=== PATIENT | male | born 1985 | race African-American/Black ===

== ENCOUNTER 2018-09-03 05:38 | Inpatient (IN) | payer MEDICAID ==
[~2018-09-03] VITALS: Ht 182.9 cm; Wt 88.2 kg
[~2018-09-03 05:38] MED LIST: IBUPROFEN800 MG ORAL; NKM
[2018-09-03] MEDS ORDERED: Morphine Sulfate 4mg/ml Inj (IV USE ONLY) IVP ONE (06:00)
--- NOTE | 2018-09-03 06:04 | Emergency Room Report ---
History of Present Illness General Chief Complaint: Vomiting Source: Patient Present Illness HPI This is a 33-year-old male with no past medical history. He presents with chief complaint of abdominal cramps and vomiting. I had seen this patient few hours ago. He came in for the same complaint and labs showed renal insufficiency. CT scan unremarkable. Patient was discharged home. He try to drink water at home and had the same problem. Never had this problem before. This has been ongoing for last 3-4 days. No fever chills but no nausea no vomiting. Pain is sharp and crampy. 8 out of 10. Allergies: Coded Allergies: No Known Allergies (Unverified , 03/06/16) Patient History Past Medical History: see triage record, old chart reviewed Past Surgical History: none Pertinent Family History: none Social History: Denies: smoking Immunizations: other Reviewed Nursing Documentation: PMH: Agreed; PSxH: Agreed Nursing Documentation-PMH Past Medical History: No Stated History Review of Systems Eye: Denies: eye pain, blurred vision ENT: Denies: ear pain, nose congestion, throat swelling Respiratory: Denies: cough, shortness of breath Cardiovascular: Denies: chest pain, palpitations Gastrointestinal: Reports: abdominal pain, nausea, vomiting Musculoskeletal: Denies: back pain, joint pain Skin: Denies: rash Neurological: Denies: headache, numbness Endocrine: Denies: increased thirst, increased urine Hematologic/Lymphatic: Denies: easy bruising All Other Systems: negative except mentioned in HPI Physical Exam Vital Signs Date Time Temp Pulse Resp B/P (MAP) Pulse Ox O2 Delivery O2 Flow Rate FiO2 09/03/18 05:46 97.5 81 16 95 Room Air vitals unremarkable Sp02 EP Interpretation: reviewed, normal General Appearance: well appearing, no apparent distress, alert Head: normocephalic, atraumatic Eyes: bilateral eye PERRL, bilateral eye EOMI ENT: hearing grossly normal, normal pharynx Neck: full range of motion, supple, no meningismus Respiratory: chest non-tender, lungs clear, normal breath sounds Cardiovascular #1: regular rate, rhythm, no murmur Gastrointestinal: non tender, no mass, no organomegaly, no bruit, non-distended , abnormal bowel sounds Musculoskeletal: back normal, gait/station normal, normal range of motion Psychiatric: mood/affect normal Skin: warm/dry Medical Decision Making Diagnostic Impression: Primary Impression: Intractable vomiting Qualified Codes: R11.2 - Nausea with vomiting, unspecified Additional Impressions: JONAS (acute kidney injury) Dehydration ER Course Pt with n/v. Has dehydration. no e/o acute abd or obstruction. bc he cant tolerate PO, will admit. I discussed case with Dr. Kapadia who will admit. Last Vital Signs Date Time Temp Pulse Resp B/P (MAP) Pulse Ox O2 Delivery O2 Flow Rate FiO2 09/03/18 05:46 97.5 81 16 95 Room Air Status: improved Disposition: ADMITTED INPATIENT Condition: Serious Referrals: NOT CHOSEN IPA/,REFERRING (PCP) Solitario Briceno MD September 03, 2018 06:04
[2018-09-03 06:17] VITALS: BP 136/90
--- NOTE | 2018-09-03 06:20 | NUR ---
ER Nurse Note: Pt came from home c/o abdominal cramps and vomiting since 08/31. Pt stated initally the emesis was green and yellow but now it is clear. Pt was in the ER for same reason. Pt a&ox4, VSS, no signs of distress. Pt stated 7/10 sharp pain/cramping. All meds given per ERMD orders. Awaiting urine. All safety measures met; will continue to montior.
--- NOTE | 2018-09-03 07:15 | NUR ---
ED Nurse Note: Pt unable to provide urine specimen at this time.
--- NOTE | 2018-09-03 07:30 | NUR ---
ED Nurse Note: [facility] CALLED FOR PT TRANSFER. REPORT GIVEN TO OSCAR SPAIN. RN READY TO ACCEPT PT. PT TAKEN UP TO [facility] VIA GURNEY WITH ALL BELONGINGS ACCOMPANIED BY EMT. VSS.
--- NOTE | 2018-09-03 07:40 | NUR ---
ED Nurse Note: Urine sent.
[2018-09-03 07:50] LABS: APPEARANCE,URINE SLIGHTLY CLOUDY; BILIRUBIN, URINE NEGATIVE (NEGATIVE); COLOR,URINE YELLOW; GLUCOSE, URINE (UA) NEGATIVE (NEGATIVE); KETONES,URINE NEGATIVE (NEGATIVE); LEUKOCYTE ESTERASE ,URINE NEGATIVE (NEGATIVE); NITRITE,URINE NEGATIVE (NEGATIVE); PH,URINE 5 (4.5-8.0); PROTEIN,URINE 2+ (NEGATIVE); UROBILINOGEN,URINE NORMAL MG/DL (0.0-1.0)
[2018-09-03 08:00] VITALS: BP 146/92
[2018-09-03] MEDS: D5NS 1,000 ML IV SCH ×2 (09:14→20:16)
[2018-09-03 09:35] LABS: BASOPHILS % (AUTO) 1.3 % (0.0-2.0); EOSINOPHILS % (AUTO) 0.2 % (0.0-3.0); HEMOGLOBIN 17.8 G/DL (14.2-18.0); LYMPHOCYTES % (AUTO) 14.1 % (20.0-45.0); MEAN CORPUSCULAR VOLUME 90 FL (80-99); MONOCYTES % (AUTO) 12.2 % (1.0-10.0); NEUTROPHILS % (AUTO) 72.2 % (45.0-75.0); PLATELET COUNT 349 K/UL (150-450); RED BLOOD COUNT 5.69 M/UL (4.70-6.10); RED CELL DISTRIBUTION WIDTH 11.5 % (11.6-14.8); WHITE BLOOD COUNT 14.8 K/UL (4.8-10.8)
[2018-09-03 09:40] LABS: ANION GAP 11 mmol/L (5-15); BLOOD UREA NITROGEN 45 mg/dL (7-18); CALCIUM 10.1 MG/DL (8.5-10.1); CARBON DIOXIDE 30 MMOL/L (21-32); CHLORIDE 94 MMOL/L (98-107); SODIUM 135 MMOL/L (136-145)
[2018-09-03] MEDS ORDERED: Enoxaparin 40mg Inj SUBQ SCH (10:00)
[2018-09-03] MEDS: Enoxaparin 40mg Inj SUBQ SCH (10:00)
[2018-09-03] MEDS ORDERED: cefTRIAXone 1 GM in D5W 55 ML IVPB SCH (11:00)
[2018-09-03 12:00] VITALS: BP 129/99
--- NOTE | 2018-09-03 13:08 | NUR ---
CASE MANAGEMENT:REVIEW 33 YR OLD MALE PRESENTED TO ER CC: SEVERE ABDOMINAL PAIN, CRAMPING AND VOMITING SI: INTRACTABLE VOMITING 97.5 86 16 136/90 95% ON RA WBC+14.8 BUN+45 CR+2.0 IS: 1L NS BOLUS IV ZOFRAN IV MORPHINE : TO MED/SURG 3 EAST INTERQUAL CRITERIA MET
[2018-09-03 15:45] VITALS: BP 137/84
--- NOTE | 2018-09-03 16:45 | History and Physical Report ---
DATE OF ADMISSION: 09/03/2018 REASON FOR ADMISSION: 1. Acute kidney injury. 2. Nausea, vomiting. 3. Dehydration. HISTORY OF PRESENT ILLNESS: The patient is a 33-year-old gentleman who presented to the emergency room complaining of abdominal cramps, nausea, and vomiting. The patient stated that over the last three to four days, he has not been able to eat or drink anything and has had nausea, vomiting. The patient had presented to the emergency room, previously had been discharged and return for further evaluation and care, did noted to be positive for opioids and marijuana. His creatinine had been elevated at 2.9, improved to 2.5. The patient was admitted for further evaluation and care of nausea, vomiting, and dehydration. ALLERGIES: No known drug allergies. PAST MEDICAL HISTORY: Knee pain. PAST SURGICAL HISTORY: None. FAMILY HISTORY: None. SOCIAL HISTORY: Positive for marijuana. REVIEW OF SYSTEMS: NEUROLOGIC: The patient denies headache, change in vision, syncope, presyncopal episodes. CARDIOVASCULAR: No current chest pain, palpitations, or angina. PULMONARY: No difficulty breathing, productive cough, sputum. GASTROINTESTINAL/GENITOURINARY: The patient is complaining of nausea and vomiting. No diarrhea. ENDOCRINOLOGY: No night sweats, fevers, or chills. PHYSICAL EXAMINATION: VITAL SIGNS: Blood pressure 129/84, respiratory rate 18, pulse 82, temperature 98.0, 98% oxygen saturation on room air. GENERAL: The patient is awake, alert, not in distress. HEENT: Extraocular muscles intact. No lymphadenopathy noted. Oropharyngeal mucosa is clear and dry. CARDIOVASCULAR: S1 and S2. No rubs or gallops. PULMONARY: Clear to auscultation bilaterally. No rales, rhonchi or wheezes. ABDOMEN: Nontender. EXTREMITIES: No edema noted. LABORATORY DATA: None currently available. ASSESSMENT AND PLAN: 1. Acute kidney injury, most likely secondary to severe intravascular volume depletion from nausea, vomiting over the last four to five days. IV fluids have been initiated. 2. Nausea and vomiting. The patient is positive for opioids and marijuana. At this time, Gastroenterology has been consulted for further evaluation and management. IV fluids and Zofran have been initiated. The patient may have a urinary tract infection. 3. UTI. Start Rocephin. 4. Severe volume depletion. We will continue IV fluids. CT abdomen and pelvis has been done, no abnormal pathology noted. Ori Pimentel MD DR: AMBER JOB#: [id number] CC:
--- NOTE | 2018-09-03 19:00 | NUR ---
NURSE NOTES: NO PAIN.NO VOMITING. CONDITION STABLE.
--- NOTE | 2018-09-03 19:21 | NUR ---
HAND-OFF: Report given to Jazlyn PASTRANA RN.
--- NOTE | 2018-09-03 19:22 | NUR ---
NURSE NOTES: Report taken from OSCAR Llanos. Patient is awake and seated at edge of bed, family at bedside. A&Ox4. No signs of distress on room air. IV c/d/i and patent, running D5NS at 100 mls/hr. Patient is having no complaints of pain, nausea or vomiting at the current time. stated tolerating diet well. Bed in lowest position, call light within reach.
[2018-09-03 20:00] VITALS: BP 142/96
[2018-09-04 04:00] VITALS: BP 131/91
[2018-09-04] MEDS: D5NS 1,000 ML IV SCH (05:14)
--- NOTE | 2018-09-04 07:20 | NUR ---
HAND-OFF: Report given to OSCAR Llanos. Patient is in bed, VS stable..
[2018-09-04 07:28] LABS: BASOPHILS % (AUTO) 1.6 % (0.0-2.0); EOSINOPHILS % (AUTO) 1.9 % (0.0-3.0); HEMATOCRIT 46.1 % (42.0-52.0); HEMOGLOBIN 15.9 G/DL (14.2-18.0); LYMPHOCYTES % (AUTO) 20.4 % (20.0-45.0); MEAN CORPUSCULAR VOLUME 90 FL (80-99); MONOCYTES % (AUTO) 14.4 % (1.0-10.0); NEUTROPHILS % (AUTO) 61.7 % (45.0-75.0); PLATELET COUNT 319 K/UL (150-450); RED BLOOD COUNT 5.11 M/UL (4.70-6.10); RED CELL DISTRIBUTION WIDTH 11.2 % (11.6-14.8); WHITE BLOOD COUNT 10.6 K/UL (4.8-10.8)
--- NOTE | 2018-09-04 07:34 | NUR ---
NURSE NOTES: AWAKE/ALERT. PAIN SCALE 9/10. IN NO APPARENT DISTRESS. Addendum: 09/04/18 at 0736 by JUDIT EDWARDS RN AWAKE /ALERT. NO PAIN. NON/V. IN NO DISTRESS.
[2018-09-04 07:52] LABS: ANION GAP 9 mmol/L (5-15); BLOOD UREA NITROGEN 24 mg/dL (7-18); CALCIUM 8.9 MG/DL (8.5-10.1); CARBON DIOXIDE 29 MMOL/L (21-32); CHLORIDE 99 MMOL/L (98-107); CREATININE 1.2 MG/DL (0.55-1.30); POTASSIUM 3.4 MMOL/L (3.5-5.1); SODIUM 137 MMOL/L (136-145)
[2018-09-04 08:00] VITALS: BP 118/72
[2018-09-04] MEDS: Enoxaparin 40mg Inj SUBQ SCH (08:59)
--- NOTE | 2018-09-04 09:11 | Nephrology Progress Note ---
Assessment/Plan Assessment/Plan: 1. JONAS- severe intravascular volume depletion from nausea, vomiting - Cr down to 1.2 with IVFs - stable, continue IVFs 2. Nausea and vomiting. The patient is positive for opioids and marijuana. - difficulty swallowing - per GI 3. UTI. Rocephin. 4. Severe volume depletion. Continue IVFs Subjective Date patient seen: September 04, 2018 Time patient seen: 09:09 ROS Limited/Unobtainable: No Gastrointestinal/Abdominal: Reports: difficulty swallowing, nausea Allergies: Coded Allergies: No Known Allergies (Unverified , 03/06/16) Subjective Patient c/o difficulty swallowing Objective Last 24 Hour Vital Signs Date Time Temp Pulse Resp B/P (MAP) Pulse Ox O2 Delivery O2 Flow Rate FiO2 09/04/18 08:10 Room Air 09/04/18 04:00 98.5 68 18 131/91 (104) 99 09/03/18 21:00 Room Air 09/03/18 20:00 98.7 71 20 142/96 (111) 99 09/03/18 15:45 98.1 64 18 137/84 (101) 100 09/03/18 12:00 98.1 86 20 129/99 (109) 95 Intake and Output 09/03/18 09/04/18 18:59 06:59 Intake Total 2145 ml 100 ml Balance 2145 ml 100 ml Intake Oral 340 ml IV Total 1805 ml 100 ml # Voids 3 Laboratory Tests 09/03/18 09:15: White Blood Count 14.8H, Red Blood Count 5.69, Hemoglobin 17.8, Hematocrit 51.0 , Mean Corpuscular Volume 90, Mean Corpuscular Hemoglobin 31.3H, Mean Corpuscular Hemoglobin Concent 35.0, Red Cell Distribution Width 11.5L, Platelet Count 349, Mean Platelet Volume 8.6, Neutrophils (%) (Auto) 72.2, Lymphocytes (%) (Auto) 14.1L, Monocytes (%) (Auto) 12.2H, Eosinophils (%) (Auto ) 0.2, Basophils (%) (Auto) 1.3, Sodium Level 135L, Potassium Level 4.0, Chloride Level 94L, Carbon Dioxide Level 30, Anion Gap 11, Blood Urea Nitrogen 45H, Creatinine 2.0H, Estimat Glomerular Filtration Rate 46.3, Glucose Level 111H, Calcium Level 10.1 09/04/18 06:18: White Blood Count 10.6, Red Blood Count 5.11, Hemoglobin 15.9, Hematocrit 46.1, Mean Corpuscular Volume 90, Mean Corpuscular Hemoglobin 31.1H, Mean Corpuscular Hemoglobin Concent 34.5, Red Cell Distribution Width 11.2L, Platelet Count 319, Mean Platelet Volume 8.6, Neutrophils (%) (Auto) 61.7, Lymphocytes (%) (Auto) 20.4, Monocytes (%) (Auto) 14.4H, Eosinophils (%) (Auto) 1.9, Basophils (%) ( Auto) 1.6, Sodium Level 137, Potassium Level 3.4L, Chloride Level 99, Carbon Dioxide Level 29, Anion Gap 9, Blood Urea Nitrogen 24H, Creatinine 1.2, Estimat Glomerular Filtration Rate > 60, Glucose Level 108H, Calcium Level 8.9 Height (Feet): 6 Weight (Pounds): 194 General Appearance: no apparent distress, alert EENT: normal ENT inspection Neck: normal alignment, supple Cardiovascular: normal rate, regular rhythm Respiratory/Chest: lungs clear, normal breath sounds Abdomen: non tender, soft Edema: no edema noted Arm (L), no edema noted Arm (R), no edema noted Leg (L), no edema noted Leg (R), no edema noted Pedal (L), no edema noted Pedal (R), no edema noted Generalized Ori Pimentel MD September 04, 2018 09:11
--- NOTE | 2018-09-04 10:42 | Discharge Instructions ---
Discharge Instructions Discharge Instructions Services at Discharge: day care Resume Normal Activity?: Yes Follow Up Orders Follow Up with PCP 1 week For Congestive Heart Failure Reminder Report to your physician any weight gain of 5 pounds or more in one week. Ori Pimentel MD September 04, 2018 10:42
--- NOTE | 2018-09-04 11:00 | NUR ---
NURSE NOTES: discharged home accpd by in stable condition. dc instructions given.
--- NOTE | 2018-09-04 21:44 | General Progress Note ---
Assessment/Plan Assessment/Plan: Assessment - Resolved N/V - Azotemia Recommendations - push po - d/c planning Subjective Allergies: Coded Allergies: No Known Allergies (Unverified , 03/06/16) Subjective Feels better no N/V tolerating po Objective Last 24 Hour Vital Signs Date Time Temp Pulse Resp B/P (MAP) Pulse Ox O2 Delivery O2 Flow Rate FiO2 09/04/18 08:10 Room Air 09/04/18 08:00 99.3 53 18 118/72 (87) 100 09/04/18 04:00 98.5 68 18 131/91 (104) 99 Intake and Output 09/03/18 09/04/18 19:00 07:00 Intake Total 2245 ml 100 ml Balance 2245 ml 100 ml Intake Oral 340 ml IV Total 1905 ml 100 ml # Voids 3 Laboratory Tests 09/04/18 06:18: White Blood Count 10.6, Red Blood Count 5.11, Hemoglobin 15.9, Hematocrit 46.1, Mean Corpuscular Volume 90, Mean Corpuscular Hemoglobin 31.1H, Mean Corpuscular Hemoglobin Concent 34.5, Red Cell Distribution Width 11.2L, Platelet Count 319, Mean Platelet Volume 8.6, Neutrophils (%) (Auto) 61.7, Lymphocytes (%) (Auto) 20.4, Monocytes (%) (Auto) 14.4H, Eosinophils (%) (Auto) 1.9, Basophils (%) ( Auto) 1.6, Sodium Level 137, Potassium Level 3.4L, Chloride Level 99, Carbon Dioxide Level 29, Anion Gap 9, Blood Urea Nitrogen 24H, Creatinine 1.2, Estimat Glomerular Filtration Rate > 60, Glucose Level 108H, Calcium Level 8.9 Height (Feet): 6 Weight (Pounds): 194 Objective WDWN NCAT supple CTA RRR abd soft ND no edema Loren Jc MD September 04, 2018 21:44
--- NOTE | 2018-09-05 00:45 | Consultation ---
DATE OF CONSULTATION: 09/03/2018 NOTE: POOR AUDIO GASTROENTEROLOGY CONSULTATION CONSULTING PHYSICIAN: Loren Jc M.D. CHIEF COMPLAINT: "I was asked to see this patient by Dr. Ori Pimentel for evaluation of nausea and vomiting." HISTORY OF PRESENT ILLNESS: The patient is a 33-year-old, gentleman, who came to the emergency room with four days history of abdominal cramps and vomiting. The patient states that this has started after he and his family had . He states that actually his xdbwpa-ka-aib also became ill, but swelling of the face. The patient himself, however, started having nausea and vomiting multiple times a day. He came to emergency room on and his creatinine is elevated to 2.9, which subsequently improved to 2.5. He then subsequently returned and was admitted to the hospital. The patient denies any diarrhea. Today on my evaluation, the patient actually feels much better. He states that his vomiting has completely resolved and he has no abdominal pain. He states positive for marijuana. He states that he has been taking marijuana twice daily for the past many years, since he is in his 20s. previous history of nausea and vomiting. PAST MEDICAL HISTORY: Otherwise negative. FAMILY HISTORY: Negative for disorders. SOCIAL HISTORY: The patient is . He has children. He does use marijuana twice daily but he denies any drug use. MEDICATIONS: None. REVIEW OF SYSTEMS: Negative. PHYSICAL EXAMINATION: GENERAL: A well-developed, well-nourished man, seen in his room. HEENT: Normocephalic and atraumatic. Sclerae anicteric. Oropharynx clear. NECK: Supple. CHEST: Clear to auscultation. CARDIOVASCULAR: regular rate. ABDOMEN: Soft with good bowel sounds. There is no organomegaly or tenderness. No masses. EXTREMITIES: Revealed no edema. NEUROLOGIC: Grossly nonfocal. LABORATORY DATA: Noted. ASSESSMENT: This patient presents with acute disorder consistent with predominantly nausea and vomiting where he had a significant degree of azotemia and acute renal failure, which is being addressed separately. The differential diagnosis mostly includes a viral gastroenteritis, which resolved spontaneously. The patient however has more azotemia that be attributable to this simple process. In addition, he has a significant degree of leukocytosis. We will therefore check his stool although this is the first time. The patient's vomiting is therefore not a typical diagnosis at this time. RECOMMENDATIONS: 1. Continue IV hydration. 2. Follow laboratory parameters. 3. Check stool for cultures including Salmonella and treatment of food exposure. 4. Advance diet as tolerated. Thank you for asking me to participate in care of this patient. Loren Jc M.D. DR: KEILY JOB#: [id number] CC:
--- NOTE | 2018-09-05 09:20 | Discharge Summary ---
Discharge Summary Discharge Summary _ DATE OF ADMISSION: 09/03/2018 DATE OF DISCHARGE: 09/04/2018 DISCHARGED BY: Dr. Ori Pimentel CONSULTANTS: Dr. Loren Jc BRIEF HOSPITAL COURSE: Patient is a 33-year-old gentleman, who presented to the emergency room complaining of abdominal cramps, nausea, and vomiting. The patient stated over the past 3 to 4 days, he was not able to eat or drink anything and had nausea and vomiting. The patient had presented to the emergency room the day prior, where he was noted to be positive for opioids and marijuana. CT scan was unremarkable. He was discharged but came back to ED for further evaluation and care. Creatinine was elevated at 2.9. The patient was admitted for further evaluation and care of nausea, vomiting and dehydration. Patient was admitted to medical floor. He was started on clear liquid diet. Patient had acute kidney injury, most likely secondary to severe intravascular volume depletion from nausea, and vomiting. He was given IV hydration. Urinalysis showed 2+ protein, 4+ blood, negative nitrite, negative leukocyte esterase, 15-20 RBC, 0-2 WBC with hyaline and granular casts. He was started empirically on Rocephin. GI was consulted. He was given symptomatic treatment. Diet was advanced. Vomiting completely resolved. Patient stated he had been taking marijuana twice daily for many years. Creatinine eventually normalized. He was tolerating p.o. well. Patient was discharged home. FINAL DIAGNOSES: Acute kidney injury Nausea and vomiting UTI Severe volume depletion DISPOSITION: Patient was discharged home. DISCHARGE MEDICATIONS: Refer to Discharge Medication List. DISCHARGE INSTRUCTIONS: Follow-up in a week. I have been assigned to complete a discharge summary on this account, I was not involved with the patient's management. Cynthia Billy NP September 05, 2018 09:20
== END 2018-09-04 11:30 | disposition home or self-care (01) | DRG 469 ==
LOC: EMR 05:55 → 3E 06:14 → EDBEDREQ 06:28
DX: N17.9 Acute kidney failure, unspecified (principal); E86.0 Dehydration; N39.0 Urinary tract infection, site not specified; R11.2 Nausea with vomiting, unspecified
CPT/HCPCS: 36415; 80048; 80307; 81003; 85025; 87045; 96361; 96374; 96375; 99285; J2405; J8499

== ENCOUNTER 2019-09-13 23:37 | Inpatient (IN) | payer SELFPAY ==
[~2019-09-13] VITALS: Ht 182.9 cm; Wt 90.7 kg
--- NOTE | 2019-09-13 23:48 | NUR ---
ED Nurse Note: pt presents to ED c/o N/V since this AM, pt has not been able to keep fluids or medications down. pt reports that when he vomits, it causes his abd to spasm and 10/10 pain. the px is mostly in the upper abd, pt denies fever, chills or diarrhea at this time. pt is diaphoretic and actively vomiting up on exam.
[2019-09-13 23:50] VITALS: BP 159/86
[2019-09-14] MEDS ORDERED: Dicyclomine HCl 10mg/5ml oral soln ORAL ONE
[2019-09-14] MEDS ORDERED: Lidocaine 2% Visc 15ml soln ORAL ONE
[2019-09-14] MEDS ORDERED: Mylanta II UD 30ml ORAL ONE
[2019-09-14] MEDS ORDERED: Morphine Sulfate 4mg/ml Inj (IV USE ONLY) IVP ONE
--- NOTE | 2019-09-14 00:27 | Emergency Room Report ---
History of Present Illness General Chief Complaint: Nausea Source: Patient Present Illness HPI 34-year-old male presents ED for evaluation of nausea and vomiting. Started this morning after eating breakfast. Multiple episodes of vomiting. Feels dehydrated. Cramping pain. 8 out of 10, nonradiating. Has been here previously for similar presentation. States that he smokes marijuana but has cut back. Denies any alcohol use or other drug use. Denies fevers or chills. Denies diarrhea. No other aggravating relieving factors. Denies any other associated symptoms Allergies: Coded Allergies: No Known Allergies (Unverified , 03/06/16) COVID-19 Screening Contact w/high risk pt: No Recent Travel to affected area: No Experienced COVID-19 symptoms?: No COVID-19 Testing performed DEVELOPMENT MANAGER: No Patient History Past Medical History: none Past Surgical History: none Pertinent Family History: none Social History: Denies: smoking, alcohol use, drug use Immunizations: UTD Reviewed Nursing Documentation: PMH: Agreed; PSxH: Agreed Nursing Documentation-PMH Hx Cardiac Problems: No Hx Cancer: No Hx Gastrointestinal Problems: No Hx Neurological Problems: No Review of Systems All Other Systems: negative except mentioned in HPI Physical Exam Vital Signs Date Time Temp Pulse Resp B/P (MAP) Pulse Ox O2 Delivery O2 Flow Rate FiO2 09/13/19 23:41 98.2 98 16 159/86 (110) 96 Sp02 EP Interpretation: reviewed, normal General Appearance: no apparent distress, alert, GCS 15, non-toxic Head: normocephalic, atraumatic Eyes: bilateral eye normal inspection, bilateral eye PERRL ENT: hearing grossly normal, normal pharynx, no angioedema, normal voice Neck: full range of motion, supple/symm/no masses Respiratory: chest non-tender, lungs clear, normal breath sounds, speaking full sentences Cardiovascular #1: regular rate, rhythm, no edema Cardiovascular #2: 2+ carotid (R), 2+ carotid (L), 2+ radial (R), 2+ radial (L) , 2+ dorsalis pedis (R), 2+ dorsalis pedis (L) Gastrointestinal: normal bowel sounds, non tender, soft, non-distended, no guarding, no rebound Rectal: deferred Genitourinary: normal inspection, no CVA tenderness Musculoskeletal: back normal, normal range of motion, gait/station normal, non- tender Neurologic: alert, motor strength/tone normal, oriented x3, sensory intact, responsive, speech normal Psychiatric: judgement/insight normal, memory normal, mood/affect normal, no suicidal/homicidal ideation Reflexes: 3+ bicep (R), 3+ bicep (L), 3+ tricep (R), 3+ tricep (L), 3+ knee (R) , 3+ knee (L) Skin: no rash Lymphatic: no adenopathy Medical Decision Making Diagnostic Impression: Primary Impression: Intractable vomiting Qualified Codes: R11.2 - Nausea with vomiting, unspecified Additional Impression: Renal insufficiency ER Course Hospital Course 34-year-old M presents to ED with cramping pain with N/V. differential diagnosis: gastritis, SBO, cholecystits Clinical course Patient placed on stretcher. On electronic device monitor. After initial history and physical I ordered labs, IV fluids, pepcid, morphine Labs - noted leukocytosis, BUN 27/Cr 4.9, LFTs elevated Patient given IV fluids. Maintenance fluids started. Due to acute renal insufficiency patient will require admission Patient will be admitted to Dr. Fernández's service I feel this is a highly complex case requiring extensive working including EKG/ Rhythm strip, Xray/CT/US, Blood/urine lab work, repeat exams while in ED, and administration of strong opiates/narcotics for pain control, admission to hospital or close patient follow up. Diagnosis - intractable vomiting, renal insufficiency Admitted to floor in serious condition Labs Test 09/13/19 00:22 09/14/19 00:22 Sodium Level 136 MMOL/L (136-145) Potassium Level 4.5 MMOL/L (3.5-5.1) Chloride Level 89 MMOL/L (98-107) Carbon Dioxide Level 26 MMOL/L (21-32) Anion Gap 21 mmol/L (5-15) Blood Urea Nitrogen 27 mg/dL (7-18) Creatinine 4.9 MG/DL (0.55-1.30) Estimat Glomerular Filtration Rate 16.4 mL/min (>60) Glucose Level 187 MG/DL (74-106) Calcium Level 11.2 MG/DL (8.5-10.1) Total Bilirubin 2.3 MG/DL (0.2-1.0) Direct Bilirubin 0.4 MG/DL (0.0-0.3) Aspartate Amino Transf (AST/SGOT) 43 U/L (15-37) Alanine Aminotransferase (ALT/SGPT) 53 U/L (12-78) Alkaline Phosphatase 110 U/L (46-116) Total Protein 10.9 G/DL (6.4-8.2) Albumin 5.7 G/DL (3.4-5.0) Globulin 5.2 g/dL Albumin/Globulin Ratio 1.1 (1.0-2.7) Lipase 48 U/L (73-393) White Blood Count 20.0 K/UL (4.8-10.8) Red Blood Count 6.22 M/UL (4.70-6.10) Hemoglobin 19.6 G/DL (14.2-18.0) Hematocrit 52.9 % (42.0-52.0) Mean Corpuscular Volume 85 FL (80-99) Mean Corpuscular Hemoglobin 31.5 PG (27.0-31.0) Mean Corpuscular Hemoglobin Concent 37.1 G/DL (32.0-36.0) Red Cell Distribution Width 10.3 % (11.6-14.8) Platelet Count 385 K/UL (150-450) Mean Platelet Volume 7.0 FL (6.5-10.1) Neutrophils (%) (Auto) % (45.0-75.0) Lymphocytes (%) (Auto) % (20.0-45.0) Monocytes (%) (Auto) % (1.0-10.0) Eosinophils (%) (Auto) % (0.0-3.0) Basophils (%) (Auto) % (0.0-2.0) Differential Total Cells Counted 100 Neutrophils % (Manual) 80 % (45-75) Lymphocytes % (Manual) 11 % (20-45) Monocytes % (Manual) 5 % (1-10) Eosinophils % (Manual) 0 % (0-3) Basophils % (Manual) 0 % (0-2) Band Neutrophils 4 % (0-8) Platelet Estimate Adequate Platelet Morphology Normal Last Vital Signs Date Time Temp Pulse Resp B/P (MAP) Pulse Ox O2 Delivery O2 Flow Rate FiO2 09/13/19 23:50 98.2 87 16 159/86 96 Status: improved Disposition: ADMITTED INPATIENT Condition: Serious Referrals: NOT CHOSEN IPA/MD,REFERRING (PCP) Romel Fox MD September 14, 2019 00:27
--- NOTE | 2019-09-14 00:28 | NUR ---
ED Nurse Note: pt able to tolerate 100 mL of water without vomiting
[2019-09-14 00:32] LABS: HEMATOCRIT 52.9 % (42.0-52.0); MEAN CORPUSCULAR VOLUME 85 FL (80-99); PLATELET COUNT 385 K/UL (150-450); RED BLOOD COUNT 6.22 M/UL (4.70-6.10); RED CELL DISTRIBUTION WIDTH 10.3 % (11.6-14.8)
[2019-09-14 00:36] LABS: HEMOGLOBIN 19.6 G/DL (14.2-18.0)
[2019-09-14 00:46] LABS: ANION GAP 21 mmol/L (5-15); BLOOD UREA NITROGEN 27 mg/dL (7-18); CALCIUM 11.2 MG/DL (8.5-10.1); CARBON DIOXIDE 26 MMOL/L (21-32); CHLORIDE 89 MMOL/L (98-107); CREATININE 4.9 MG/DL (0.55-1.30); POTASSIUM 4.5 MMOL/L (3.5-5.1); SODIUM 136 MMOL/L (136-145)
[2019-09-14 00:56] LABS: ALANINE AMINOTRANSFERASE 53 U/L (12-78); ALBUMIN 5.7 G/DL (3.4-5.0); ALBUMIN/GLOBULIN RATIO 1.1 (1.0-2.7); ALKALINE PHOSPHATASE 110 U/L (46-116); ASPARTATE AMINO TRANSFERASE 43 U/L (15-37); BILIRUBIN,TOTAL 2.3 MG/DL (0.2-1.0)
[2019-09-14 00:59] LABS: BILIRUBIN,DIRECT 0.4 MG/DL (0.0-0.3)
--- NOTE | 2019-09-14 01:06 | NUR ---
ED Nurse Note: pt completed 1 L NS IV, still unable to provide urine sample
--- NOTE | 2019-09-14 02:18 | NUR ---
ED Nurse Note: report given to Chino Ramsey RN
[2019-09-14 02:19] LABS: BILIRUBIN, URINE 1+ (NEGATIVE); GLUCOSE, URINE (UA) NEGATIVE (NEGATIVE); KETONES,URINE 2+ (NEGATIVE); LEUKOCYTE ESTERASE ,URINE 1+ (NEGATIVE); NITRITE,URINE NEGATIVE (NEGATIVE); PH,URINE 5 (4.5-8.0); PROTEIN,URINE 3+ (NEGATIVE); UROBILINOGEN,URINE 1 MG/DL (0.0-1.0)
--- NOTE | 2019-09-14 02:19 | NUR ---
NURSE NOTES: Received report from OSCAR Zeng from ER.
--- NOTE | 2019-09-14 02:25 | NUR ---
NURSE NOTES: Patient arrived to the unit by ambulation with transferring RN. Patient alert, awake, and oriented x 4. Breathing unlabored on room air without distress. Generalized body aching rating 3/10 after pain management provided from the ER. IV on left antecubital intact and patent. No skin issues. Belongings confirmed with transferring RN and patient. Oriented to the unit and the room. Bed placed at the lowest with brake on and siderails up for patient safety. Call light placed within reach and encouraged to use. Will continue to monitor.
[2019-09-14 02:32] LABS: APPEARANCE,URINE CLOUDY; COLOR,URINE YELLOW
--- NOTE | 2019-09-14 02:54 | NUR ---
NURSE NOTES: Reached Dr. Fernández regarding admission orders. Left a message. Awaiting for a call back.
[2019-09-14 04:00] VITALS: BP 130/85
--- NOTE | 2019-09-14 04:05 | NUR ---
NURSE NOTES: Dr. Fernández ordered full code and no DVT ppx. Will carry out the order as given. No other admission orders given at this time. Will continue to follow up.
--- NOTE | 2019-09-14 05:39 | NUR ---
NURSE NOTES: Reached Dr. Fernández regarding patient's diet or any other additional admission orders to follow up. Awaiting for call back. Patient currently stable and sleeping.
--- NOTE | 2019-09-14 06:29 | NUR ---
NURSE NOTES: Dr. Fernández ordered NS @ 75mls/hr and regular diet. No other additional orders at this time. Read back and confirmed. Will carry out the order as given.
--- NOTE | 2019-09-14 07:28 | NUR ---
HAND-OFF: Report given to OSCAR Whipple. Plan of care endorsed. Made round with receiving RN. Patient in stable condition.
--- NOTE | 2019-09-14 07:30 | NUR ---
NURSE NOTES: Received patient in bed. Awake, A/O x4. On room air. Patient denies pain. Bed low and locked, call light within reach.
[2019-09-14 08:00] VITALS: BP 138/75
[2019-09-14 11:53] VITALS: BP 105/58
[2019-09-14] MEDS ORDERED: cefTRIAXone 1 GM in D5W 55 ML IVPB SCH (13:00)
--- NOTE | 2019-09-14 15:30 | NUR ---
NURSE NOTES: Patient discharged to home via spouse's vehicle. ID band removed, IV site removed, VSS. Belongings list verified.
--- NOTE | 2019-09-14 20:30 | History and Physical Report ---
DATE OF ADMISSION: 09/14/2019 HISTORY AND PHYSICAL/DISCHARGE SUMMARY HISTORY OF PRESENT ILLNESS: This is a 34-year-old male who came to the emergency room for having nausea, vomiting, and was found to have renal insufficiency. Patient yesterday night was given some hydration and patient feeling better, tolerating diet. Nausea and vomiting is resolved. Patient claims he has kidney problem before. Has been seeing outpatient primary. Patient is physically doing better. He wants to go home in spite of requested Nephro consult, but patient said he is going to go home. He is afraid with COVID while in the hospital. Physically, he has no concerns right now. PHYSICAL EXAMINATION: VITAL SIGNS: Blood pressure is 105/58, pulse 65, no fever. HEENT: NAD. CHEST: Bilaterally clear. CARDIOVASCULAR: Regular rhythm. No gallop. No murmur. ABDOMEN: Soft. EXTREMITIES: CCE. NEUROLOGICAL: No focal deficit. LABORATORY DATA: White counts are 20,000, hemoglobin 20, hematocrit 52, platelets are 385. Urine showing 1+ urobilinogen, 1+ leukocyte esterase, and slightly dehydration. His microbiology results, there are no reports right now. ASSESSMENT: 1. UTI. 2. Chronic renal insufficiency. 3. Recurrent nausea and vomiting, resolved. PLAN: Patient wants to go home. Discussed with charge nurse and patient. Patient recommended to follow up with his primary care and also writing a prescription for Nephro-Ida, Levaquin for 5 days. Follow up with primary care as outpatient. Increase p.o. fluids. Recommended to come to the emergency room if have similar effects. Shekhar Fernández M.D. DR: RENATO JOB#: [id number] CC:
== END 2019-09-14 15:56 | disposition home or self-care (01) | DRG 690 ==
LOC: EMR 23:54 → 4E 09-14 01:09 → EDBEDREQ 09-14 02:08 → 4E 09-14 02:37
DX: N39.0 Urinary tract infection, site not specified (principal); R11.2 Nausea with vomiting, unspecified; E86.0 Dehydration; N18.9 Chronic kidney disease, unspecified
CPT/HCPCS: 36415; 80053; 81003; 82248; 83690; 85007; 85025; 96361; 96374; 96375; 99285; J2405; J7030

== ENCOUNTER 2020-01-19 03:03 | Observation (INO) | payer SELFPAY ==
[~2020-01-19] VITALS: Ht 182.9 cm; Wt 94.5 kg
[~2020-01-19 03:03] MED LIST changes: +CAPSAICIN60 GM TP; +ONDANSETRON ODT4 MG BC
[2020-01-19] MEDS ORDERED: Mylanta II UD 30ml ORAL ONE (03:15)
--- NOTE | 2020-01-19 03:37 | Emergency Room Report ---
History of Present Illness General Chief Complaint: Abdominal Pain Source: Patient Present Illness HPI 34-year-old -[place]er male with PMHx of chronic kidney disease and marijuana abuse presents with complaint of atraumatic non radiating left upper quadrant abdominal pain that woke him up from sleep. The pain has been going on since 2 days ago, and he has been unable to tolerate food due to pain. He endorses nausea and vomiting x5 prior to arrival (nonbloody and nonbilious). Denies fever, chest pain, shortness of breath, diarrhea, flank pain, dysuria, melena, hematochezia, focal weakness, headache, neck pain, rash or other symptoms The patient's symptoms were acute onset, severity was moderate, duration since 2 day. Quality: Cramping Past medical history: Chronic kidney disease, marijuana use Past surgical history: Denies Smoking: Denies Alcohol use: ++occasional Drug use: ++ Marijuana Review of systems: CONST: No fevers or chills, No night sweats PULMONARY: No productive cough, No shortness of breath CARDIAC: No chest pain, No palpitations GI: ++ vomiting, No diarrhea , No melena_or_BRBPR : No dysuria, No hematuria, No discharge NEURO: No new_focal_weakness_or_numbness, No confusion, No vision changes 14 point Review of Systems is otherwise negative except per HPI Physical Exam: GENERAL: Awake_alert_ nontoxic, no acute distress Spo2 98% on RA -normal EYES: Extraocular muscles are intact. Conjunctivae clear. Lids without swelling ENT: External nose and ear normal_in_appearance. Oropharynx clear. Head_atraumatic, Moist_oral_mucosa NECK: No JVD. No meningismus. No thyromegaly. Supple. Trachea midline RESP: Normal respiratory effort. Symmetric rise. No stridor. Clear_to_auscultation_No_rales_No_wheezes CARDIAC: Regular rate and regular rhytm. No_significant pedal edema. ABDOMEN: Soft. Nondistended. Nontender_No_rebound_or_guarding. No CVA tenderness palpation. Negative Collado sign. Negative Rovsing sign.. MSK: Normal muscle tone, without rigidity. Extremities without asymmetric deformity or swelling. SKIN: Warm and dry. No visible cyanosis or pallor NEUROLOGIC: Alert, oriented x3 Motor_and_sensation_grossly_intact. No truncal ataxia. Gait_normal Psych: Normal mood and affect, normal judgment and insight - COORDINATION OF CARE Case was discussed with: Patient Any labs that were ordered were interpreted as part of the medical decision making: Medical Decision Making/Plan: Differential diagnosis includes cyclic vomiting syndrome, cannabinoid hyperemesis, gastritis, GERD, cholecystitis, choledocholithiasis, hepatitis, pancreatitis, atypical appendicitis, gastroparesis, gastritis, peptic ulcer disease DOUBT small bowel obstruction, volvulus, AAA, among others. Patient is well appearing with stable vital signs. Complains of abdominal cramping that woke him up from sleep and isolated to the left upper quadrant. Abdominal exam is non peritoneal with no guarding or rebound. No CVA tenderness to palpation Labs show nonspecific leukocytosis. Furthermore showed JONAS on CKD. Creatinine today is 2.5. Baseline creatinine is 2.0. Likely pre-renal 2/2 decreased PO + instrinsic renal CKD. Patient endorsed marijuana use recently. Previous UDS was positive for marijuana on chart review. Pt responded well to haldol. EKG shows normal sinus rhythm. No acute ischemia. Possible LVH ED intervention included Haldol, Zofran, fluids with full relief of symptoms The patient denies any bloody stool and has no pain out of proportion to exam, and no significant risk factors for mesenteric ischemia such as atrial fibr illation or severe PAD/PVD (peripheral arterial / vascular disease), thus definitive workup to rule out mesenteric ischemia was not pursued. Patient is afebrile, without any significant tenderness in the RUQ, and a negative Garland sign. The patients presentation does not appear to be consistent with acute cholecystitis and thus definitive imaging to rule it out was not pursued. The patient has no significant risk factors for AAA (abdominal aortic aneurysm) such as age over 50 with history of hypertension, connective tissue disorder, or 1st degree relative with AAA. the patient has normal dorsalis pedis pulses, no radiation of pain to the back, and no pulsatile mass felt on exam. The patients profile was overall low risk for AAA and definitive workup was not pursued. The patients symptoms are not consistent with ACS (acute coronary syndrome), symptoms are not exertional, EKG without obvious ischemic change. I spoke with Dr. Mendes, and reviewed the patients presentation, workup, results, and treatment. They will admit the patient for further care and evaluation, and assume care of the patient at this time. Allergies: Coded Allergies: No Known Allergies (Unverified , 03/06/16) COVID-19 Screening Contact w/high risk pt: No Recent Travel to affected area: No Experienced COVID-19 symptoms?: No COVID-19 Testing performed EGG CASER: No Nursing Documentation-PMH Hx Cardiac Problems: No Hx Cancer: No Hx Gastrointestinal Problems: No - h/o intractable vomiting Hx Dialysis: No - KIDNEY ISSUE Hx Neurological Problems: No Physical Exam Vital Signs Date Time Temp Pulse Resp B/P (MAP) Pulse Ox O2 Delivery O2 Flow Rate FiO2 01/19/20 03:08 98.1 64 22 124/82 (96) 96 Room Air Sp02 EP Interpretation: reviewed, normal Medical Decision Making Diagnostic Impression: Primary Impression: Acute kidney injury superimposed on CKD Additional Impressions: Cannabinoid hyperemesis syndrome Dehydration Nausea & vomiting EKG Diagnostic Results PA Scribe Text 12-lead EKG (interpreted by me) Time: 0424 Indication: Rhythm analysis Tracing visualized and Interpreted by me. Rhythm: Normal sinus rhythm Rate: 62 bpm QTc: 391 Morphology: No_significant_ST_elevations_or_depressions, No STEMI Impression: Normal_sinus_rhythm_without_significant_abnormality Last Vital Signs Date Time Temp Pulse Resp B/P (MAP) Pulse Ox O2 Delivery O2 Flow Rate FiO2 01/19/20 03:08 98.1 64 22 124/82 (96) 96 Room Air Disposition: ADMITTED INPATIENT Admit Decision Time: 04:39 Condition: Stable Lety Archer D.O. Jan 19, 2020 03:37
--- NOTE | 2020-01-19 03:43 | NUR ---
ED Nurse Note: Patient attempted to void at this time but was unsuccessful. Patient reports voiding 4 ours ago with no complications.
[2020-01-19 03:45] VITALS: BP 124/82
[2020-01-19] MEDS ORDERED: Haloperidol 5mg/ml Inj IM ONE (03:45)
--- NOTE | 2020-01-19 03:45 | NUR ---
ED Nurse Note: Patient presents with complaints of abdominal pain, and vomitting x 1 day. Patient reports not being able to hold anything down.
[2020-01-19 04:09] LABS: BASOPHILS % (AUTO) 2.3 % (0.0-2.0); HEMATOCRIT 49.6 % (42.0-52.0); LYMPHOCYTES % (AUTO) 8.8 % (20.0-45.0); MEAN CORPUSCULAR VOLUME 90 FL (80-99); MONOCYTES % (AUTO) 5.9 % (1.0-10.0); PLATELET COUNT 362 K/UL (150-450); RED BLOOD COUNT 5.54 M/UL (4.70-6.10); RED CELL DISTRIBUTION WIDTH 11.6 % (11.6-14.8); WHITE BLOOD COUNT 15.6 K/UL (4.8-10.8)
[2020-01-19 04:23] LABS: CALCIUM 10.3 MG/DL (8.5-10.1); CREATININE 2.5 MG/DL (0.55-1.30); POTASSIUM 4.3 MMOL/L (3.5-5.1)
[2020-01-19 04:25] LABS: INR 1.1 (0.9-1.1)
[2020-01-19 04:33] LABS: ALBUMIN 5.4 G/DL (3.4-5.0); ALBUMIN/GLOBULIN RATIO 1.1 (1.0-2.7); BILIRUBIN,TOTAL 1.7 MG/DL (0.2-1.0)
--- NOTE | 2020-01-19 04:45 | NUR ---
ED Nurse Note: Patient expresses being extremely cold. Patient provided with warm blankets. Still awaiting urine sample.
[2020-01-19 04:47] LABS: BILIRUBIN,DIRECT 0.4 MG/DL (0.0-0.3)
[2020-01-19] MEDS ORDERED: D5NS 1000ml IV ONE (05:29)
--- NOTE | 2020-01-19 05:30 | NUR ---
ED Nurse Note: Patient able to render urine sample. Urine specimen taken to lab for evaluation.
[2020-01-19 05:41] LABS: BILIRUBIN, URINE 1+ (NEGATIVE); GLUCOSE, URINE (UA) NEGATIVE (NEGATIVE); KETONES,URINE 2+ (NEGATIVE); LEUKOCYTE ESTERASE ,URINE 1+ (NEGATIVE); NITRITE,URINE NEGATIVE (NEGATIVE); PH,URINE 5 (4.5-8.0); PROTEIN,URINE 3+ (NEGATIVE); UROBILINOGEN,URINE 1 MG/DL (0.0-1.0)
[2020-01-19] MEDS ORDERED: Acetaminophen 650 MG SUPP RECTAL PRN (05:45)
[2020-01-19] MEDS ORDERED: Morphine Sulfate 2mg/ml Inj(IV/IM USE ONLY) IVP PRN (05:45)
[2020-01-19 05:52] LABS: APPEARANCE,URINE SLIGHTLY CLOUDY; COLOR,URINE YELLOW
[2020-01-19 06:28] VITALS: BP 111/79
--- NOTE | 2020-01-19 06:32 | NUR ---
ED Nurse Note: Belongings sheet completed and signed. PAtient has $513 in [place], 1 visa, 2 mc, and 1 amex to be confirmed upon transport to floor.
--- NOTE | 2020-01-19 06:39 | NUR ---
ED Nurse Note: Report called into [facility] RN. Patient to be transported to floor at 0730.
[2020-01-19] MEDS ORDERED: cefTRIAXone 1 GM in NS 55 ML IVPB ONE (07:00)
--- NOTE | 2020-01-19 07:33 | NUR ---
ED Nurse Note: Patient was admited to [facility] due to JONAS, CKD, dehydration. Patient was transfered to the unit via gurney, with all belongings. Patient AAO x4, VSS at this time, skin is warm to touch. Patient stated has no pain, feels much better.
[2020-01-19 08:00] VITALS: BP 115/76
--- NOTE | 2020-01-19 08:00 | NUR ---
NURSE NOTES: PATIENT ARRIVED ON THE UNIT FROM ED VIA GURNEY THEN PATIENT WAS ABLE TO WALK TO THE SMITH. GAIT APPEARED STEADY. NO C/O PAIN/DISCOMFORT @ THIS TIME. PATIENT WAS ASKING FOR FOOD. DIET BEEN ORDERED. PERSONAL BELONGINGS REVIEWED AND DECLINE TO PLACE HIS BILLS $513 IN THE [facility]. SIGNED DECLINED PORTION ON THE LIST AND NICHOLE LEWIS MADE AWARE. DR GREY NOTIFIED FOR ADMISSION ORDERS. ADMISSION PROFILE DONE. SKIN ASSESSED AND INTACT. NO SWELLING OBSERVED. PIV PATENT AND INTACT ON RAC 20 G. BED KEPT IN THE LOWEST POSITION. SIDERAILS ARE UPX3, CALL LIGHT IS WITHIN REACH. BED IS ON BRAKE AND LOCK MODE. WILL CONT TO MONITOR.
--- NOTE | 2020-01-19 09:26 | Consultation ---
Consult Note Consult Note I am asked to evaluate the patient at the request of Dr. Mendes for renal failure Patient seen, interviewed, examined Preliminary orders given 34-year-old -[place] male with PMHx of chronic kidney disease and marijuana abuse presents with complaint of atraumatic non radiating left upper quadrant abdominal pain that woke him up from sleep. The pain has been going on since 2 days ago, and he has been unable to tolerate food due to pain. He endorses nausea and vomiting x5 prior to arrival (nonbloody and nonbilious). Denies fever, chest pain, shortness of breath, diarrhea, flank pain, dysuria, melena, hematochezia, focal weakness, headache, neck pain, rash or other symptoms The patient's symptoms were acute onset, severity was moderate, duration since 2 day. 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 VITAL SIGNS: Temperature 98 degrees, pulse 75, respirations 16, and blood pressure 115/76. CARDIOVASCULAR: No murmur. LUNGS: Distant and clear. ABDOMEN: Bowel sound positive. Nontender. Nondistended. EXTREMITIES: No cyanosis, clubbing, or edema. NEUROLOGIC: The patient is moving all extremities, slightly weak. . Assessment/Plan Acute renal failure Electrolyte imbalance Dehydration Marijuana abuse, causing abdominal cramps and nausea and vomiting Suggestion Hydrate Correct electrolytes Monitor renal parameters Per orders Shmuel Emerson MD Jan 19, 2020 09:26
[2020-01-19] MEDS ORDERED: Metoclopramide 10mg/2ml Inj IVP PRN (09:30)
--- NOTE | 2020-01-19 09:49 | NUR ---
CASE MANAGEMENT:INITIAL REVIEW 34 YR OLD MALE FROM HOME CC;ABDOMINAL PAIN SI;AC/CHR KIDNEY INJURY. NAUSEA/VOMITING. DEHYDRATION. CANNABINOID HYPEREMESIS SYNDROME. 98.1 64 22 124/82 96% ON RA WBC 15.6 CL 96 BUN 12 CR 2.5 BG 161 CA 10.3 T-BILI 1.7 C-BILI 0.4 ALB 5.4 LIPASE 56 UA+ PROTEIN, KETONES, BLOOD, BILIRUBIN, UROBILINOGEN, LEUKOCYTE ESTERASE, RBC, WBC, SQUAMOUS EPITH CELLS, AMORPHOUS SEDIMENT, HYALINE CASTS URINE TOX (+) THC IS;ZOFRAN IV MYLANTA PO ONCE IVF NS BOLUS HALDOL IM ONCE ROCEPHIN IV ADMITTED TO MED SURG MED SURG STATUS DCP;FROM HOME Addendum: 01/19/20 at 0959 by CHRISSY KWOK LVN LVN INTERQUAL CRITERIA MET
[2020-01-19] MEDS: D5NS 1,000 ML IV SCH ×2 (10:12→20:08)
--- NOTE | 2020-01-19 11:19 | General Progress Note ---
Subjective ROS Limited/Unobtainable: No Allergies: Coded Allergies: No Known Allergies (Unverified , 03/06/16) Objective Last 24 Hour Vital Signs Date Time Temp Pulse Resp B/P (MAP) Pulse Ox O2 Delivery O2 Flow Rate FiO2 01/19/20 10:27 Room Air 01/19/20 09:00 Room Air 01/19/20 08:00 98.3 75 16 115/76 (89) 99 01/19/20 08:00 Room Air 01/19/20 07:33 97.9 87 18 138/70 98 Room Air 01/19/20 06:28 98.1 72 12 111/79 100 Room Air 01/19/20 03:45 98.1 64 22 124/82 96 Room Air 01/19/20 03:45 64 22 Room Air 01/19/20 03:08 98.1 64 22 124/82 (96) 96 Room Air Intake and Output 01/18/20 01/19/20 19:00 07:00 Intake Total 1000 ml Balance 1000 ml Intake Oral 0 ml IV Total 1000 ml Laboratory Tests 01/19/20 04:04: White Blood Count 15.6H, Red Blood Count 5.54, Hemoglobin 17.0, Hematocrit 49.6, Mean Corpuscular Volume 90, Mean Corpuscular Hemoglobin 30.8, Mean Corpuscular Hemoglobin Concent 34.3, Red Cell Distribution Width 11.6, Platelet Count 362, Mean Platelet Volume 7.4, Neutrophils (%) (Auto) 83.0H, Lymphocytes (%) (Auto) 8.8L, Monocytes (%) (Auto) 5.9, Eosinophils (%) (Auto) 0.0, Basophils (%) (Auto) 2.3H, Prothrombin Time 12.1H, Prothromb Time International Ratio 1.1, Activated Partial Thromboplast Time 27, Sodium Level 138, Potassium Level 4.3, Chloride Level 96L, Carbon Dioxide Level 28, Anion Gap 14, Blood Urea Nitrogen 23H, Creatinine 2.5H, Estimat Glomerular Filtration Rate 35.6, Glucose Level 161H, Calcium Level 10.3H, Total Bilirubin 1.7H, Direct Bilirubin 0.4H, Aspartate Amino Transf (AST/SGOT) 28, Alanine Aminotransferase (ALT/SGPT) 49, Alkaline Phosphatase 86, Troponin I 0.016, Total Protein 10.4H, Albumin 5.4H, Globulin 5.0, Albumin/Globulin Ratio 1.1, Lipase 56L 01/19/20 04:21: POC Whole Blood Glucose 150H 01/19/20 05:35: Urine Color Yellow, Urine Appearance Slightly cloudy, Urine pH 5, Urine Specific Salome 1.025, Urine Protein 3+H, Urine Glucose (UA) Negative, Urine Ketones 2+H , Urine Blood 3+H, Urine Nitrite Negative, Urine Bilirubin 1+H, Urine Ictotest Positive, Urine Urobilinogen 1H, Urine Leukocyte Esterase 1+H, Urine RBC 2-4H, Urine WBC 5-10H, Urine Squamous Epithelial Cells ModerateH, Urine Calcium Oxalate Crystals Moderate, Urine Amorphous Sediment ModerateH, Urine Bacteria ModerateH, Urine Hyaline Casts 0-2H, Urine Opiates Screen Negative, Urine Barbiturates Screen Negative, Phencyclidine (PCP) Screen Negative, Urine Amphetamines Screen Negative, Urine Benzodiazepines Screen Negative, Urine Cocaine Screen Negative, Urine Marijuana (THC) Screen PositiveH Height (Feet): 6 Height (Inches): 0.00 Weight (Pounds): 197 General Appearance: no apparent distress EENT: normal ENT inspection Neck: supple Cardiovascular: normal rate Respiratory/Chest: decreased breath sounds Abdomen: normal bowel sounds, non tender, soft Extremities: non-tender Assessment/Plan Problem List: (1) Cannabinoid hyperemesis syndrome ICD Codes: R11.2 - Nausea with vomiting, unspecified; F12.90 - Cannabis use, unspecified, uncomplicated SNOMED: 705664672, 706770884 (2) Acute kidney injury superimposed on CKD ICD Codes: N17.9 - Acute kidney failure, unspecified; N18.9 - Chronic kidney disease, unspecified SNOMED: 67576114, 730998785 (3) Nausea & vomiting ICD Codes: R11.2 - Nausea with vomiting, unspecified SNOMED: 34199910 (4) Dehydration ICD Codes: E86.0 - Dehydration SNOMED: 15492781 (5) Abdominal cramping ICD Codes: R10.9 - Unspecified abdominal pain SNOMED: 712372108, 82966482 Assessment/Plan: iv fluids fu nephrology recs saundra prn repeat labs Suman Salazar MD Jan 19, 2020 11:19
[2020-01-19 12:08] VITALS: BP 128/69
--- NOTE | 2020-01-19 12:30 | History and Physical Report ---
DATE OF ADMISSION: 01/19/2020 TIME SEEN: 10 a.m. CONSULTANTS: 1. Pilo Blackmon MD. 2. Shmuel Emerson MD. 3. Suman Salazar MD. CHIEF COMPLAINT: JONAS, dehydration, nausea, vomiting, and hyperemesis. BRIEF HISTORY: This is a 34-year-old male, who lives at home. He apparently was smoking some marijuana and started vomiting, became dehydrated, came into [facility], diagnosed with the above, admitted to medical floor. Currently, calm in bed, feeling better, wants to go home. PAST MEDICAL HISTORY: Nothing. PAST SURGICAL HISTORY: None. ALLERGIES: Denies. MEDICATIONS: Include docusate sodium, Reglan, pantoprazole, ceftriaxone, Haldol, Zofran, and IV fluids. SOCIAL HISTORY: Positive smoking. No alcohol. Positive marijuana use. PHYSICAL EXAMINATION: GENERAL: Calm in bed, oriented x3, in no acute distress. VITAL SIGNS: Temperature 98 degrees, pulse 75, respirations 16, and blood pressure 115/76. CARDIOVASCULAR: No murmur. LUNGS: Distant and clear. ABDOMEN: Bowel sound positive. Nontender. Nondistended. EXTREMITIES: No cyanosis, clubbing, or edema. NEUROLOGIC: The patient is moving all extremities, slightly weak. LABORATORY AND DIAGNOSTIC DATA: Labs at this time show white count of 00:48, otherwise CBC is normal. BMP show chloride 96, BUN and creatinine 23/2.5. Glucose 161. Albumin 5.4. 00:57 Lipase 56. INR is 1.1. PTT is 27. Urinalysis show 3+ blood, 2+ ketones, 3+ protein, 1+ leukocyte esterase. Urine toxicology is positive for marijuana. ASSESSMENT: 1. JONAS on CKD. 2. Dehydration. 3. Nausea and vomiting. 4. Urinary tract infection. 5. Hyperemesis. PLAN: 1. Antiemetics. 2. IV fluids. 3. Antibiotics per Infectious Disease. 4. Dietary followup. 5. Check labs in a.m. 6. Discharge plan if cleared by team. 7. We will add IDDr. . 01:[address]: KAI JOB#: [id number] CC:
--- NOTE | 2020-01-19 13:23 | Consultation ---
History of Present Illness General Date patient seen: Jan 19, 2020 Chief Complaint: Abdominal Pain Present Illness HPI 34 y/o M with hx of CKD, THC abuse, tobacco abuse presented to ED on 01/19/20 with 2 days of non radiating LUQ abd pain that woke him up from sleep. Unable to tolerate food. + nausea and vomiting x5 (non bloody, non bilious); was smoking weed prior to onset of vomiting. Denied fever, CP, SOB, diarrhea, melena/hematochezia, ARGUETA, Allergies: Coded Allergies: No Known Allergies (Unverified , 03/06/16) Medication History Scheduled Capsaicin (Capsaicin), 1 GM TP ONCE No Known Medications* (NKM - No Known Medications*), 0 ., (Reported) Scheduled PRN Ondansetron Odt* (Zofran Odt*), 4 MG BC EVERY 6 HOURS PRN for Nausea & Vomiting Patient History Healthcare decision maker Resuscitation status Advanced Directive on File Patient History Narrative PMhx: as above Shx: Smoking: + Alcohol use: ++occasional Drug use: ++ Marijuana Fhx: non contributory Review of Systems All Other Systems: negative except mentioned in HPI Physical Exam Physical Exam Narrative GENERAL: Calm in bed, oriented x3, in no acute distress. CARDIOVASCULAR: No murmur. LUNGS: Distant and clear. ABDOMEN: Bowel sound positive. Nontender. Nondistended. EXTREMITIES: No cyanosis, clubbing, or edema. NEUROLOGIC: The patient is moving all extremities, slightly weak. N. Last 24 Hour Vital Signs Date Time Temp Pulse Resp B/P (MAP) Pulse Ox O2 Delivery O2 Flow Rate FiO2 01/19/20 12:08 97.0 68 18 128/69 (88) 99 01/19/20 10:27 Room Air 01/19/20 09:00 Room Air 01/19/20 08:00 98.3 75 16 115/76 (89) 99 01/19/20 08:00 Room Air 01/19/20 07:33 97.9 87 18 138/70 98 Room Air 01/19/20 06:28 98.1 72 12 111/79 100 Room Air 01/19/20 03:45 98.1 64 22 124/82 96 Room Air 01/19/20 03:45 64 22 Room Air 01/19/20 03:08 98.1 64 22 124/82 (96) 96 Room Air Intake and Output 01/18/20 01/19/20 19:00 07:00 Intake Total 1000 ml Balance 1000 ml Intake Oral 0 ml IV Total 1000 ml Laboratory Tests Test 01/19/20 04:04 01/19/20 04:21 01/19/20 05:35 White Blood Count 15.6 K/UL (4.8-10.8) H Red Blood Count 5.54 M/UL (4.70-6.10) Hemoglobin 17.0 G/DL (14.2-18.0) Hematocrit 49.6 % (42.0-52.0) Mean Corpuscular Volume 90 FL (80-99) Mean Corpuscular Hemoglobin 30.8 PG (27.0-31.0) Mean Corpuscular Hemoglobin Concent 34.3 G/DL (32.0-36.0) Red Cell Distribution Width 11.6 % (11.6-14.8) Platelet Count 362 K/UL (150-450) Mean Platelet Volume 7.4 FL (6.5-10.1) Neutrophils (%) (Auto) 83.0 % (45.0-75.0) H Lymphocytes (%) (Auto) 8.8 % (20.0-45.0) L Monocytes (%) (Auto) 5.9 % (1.0-10.0) Eosinophils (%) (Auto) 0.0 % (0.0-3.0) Basophils (%) (Auto) 2.3 % (0.0-2.0) H Prothrombin Time 12.1 SEC (9.30-11.50) H Prothromb Time International Ratio 1.1 (0.9-1.1) Activated Partial Thromboplast Time 27 SEC (23-33) Sodium Level 138 MMOL/L (136-145) Potassium Level 4.3 MMOL/L (3.5-5.1) Chloride Level 96 MMOL/L (98-107) L Carbon Dioxide Level 28 MMOL/L (21-32) Anion Gap 14 mmol/L (5-15) Blood Urea Nitrogen 23 mg/dL (7-18) H Creatinine 2.5 MG/DL (0.55-1.30) H Estimat Glomerular Filtration Rate 35.6 mL/min (>60) Glucose Level 161 MG/DL (74-106) H Calcium Level 10.3 MG/DL (8.5-10.1) H Total Bilirubin 1.7 MG/DL (0.2-1.0) H Direct Bilirubin 0.4 MG/DL (0.0-0.3) H Aspartate Amino Transf (AST/SGOT) 28 U/L (15-37) Alanine Aminotransferase (ALT/SGPT) 49 U/L (12-78) Alkaline Phosphatase 86 U/L (46-116) Troponin I 0.016 ng/mL (0.000-0.056) Total Protein 10.4 G/DL (6.4-8.2) H Albumin 5.4 G/DL (3.4-5.0) H Globulin 5.0 g/dL Albumin/Globulin Ratio 1.1 (1.0-2.7) Lipase 56 U/L (73-393) L POC Whole Blood Glucose 150 MG/DL (74-106) H Urine Color Yellow Urine Appearance Slightly cloudy Urine pH 5 (4.5-8.0) Urine Specific [place] 1.025 (1.005-1.035) Urine Protein 3+ (NEGATIVE) H Urine Glucose (UA) Negative (NEGATIVE) Urine Ketones 2+ (NEGATIVE) H Urine Blood 3+ (NEGATIVE) H Urine Nitrite Negative (NEGATIVE) Urine Bilirubin 1+ (NEGATIVE) H Urine Ictotest Positive (NEGATIVE) Urine Urobilinogen 1 MG/DL (0.0-1.0) H Urine Leukocyte Esterase 1+ (NEGATIVE) H Urine RBC 2-4 /HPF (0 - 0) H Urine WBC 5-10 /HPF (0 - 0) H Urine Squamous Epithelial Cells Moderate /LPF (NONE/OCC) H Urine Calcium Oxalate Crystals Moderate /LPF (NONE) Urine Amorphous Sediment Moderate /LPF (NONE) H Urine Bacteria Moderate /HPF (NONE) H Urine Hyaline Casts 0-2 /LPF (NONE) H Urine Opiates Screen Negative (NEGATIVE) Urine Barbiturates Screen Negative (NEGATIVE) Phencyclidine (PCP) Screen Negative (NEGATIVE) Urine Amphetamines Screen Negative (NEGATIVE) Urine Benzodiazepines Screen Negative (NEGATIVE) Urine Cocaine Screen Negative (NEGATIVE) Urine Marijuana (THC) Screen Positive (NEGATIVE) H Height (Feet): 6 Height (Inches): 0.00 Weight (Pounds): 197 Medications Current Medications Medications (Trade) Dose Ordered Sig/Sue Route PRN Reason Start Time Stop Time Status Last Admin Dose Admin Dextrose/Sodium Chloride 1,000 ml @ 100 mls/hr Q10H IV 01/19/20 09:45 02/18/20 09:44 01/19/20 10:12 Docusate Sodium (Colace) 100 mg THREE TIMES A DAY ORAL 01/19/20 13:00 02/18/20 12:59 Metoclopramide HCl (Reglan) 10 mg Q6H PRN IVP Nausea & Vomiting 01/19/20 09:30 02/18/20 09:29 Pantoprazole (Protonix) 40 mg EVERY 12 HOURS ORAL 01/19/20 09:00 02/18/20 08:59 01/19/20 09:10 Assessment/Plan Assessment/Plan: Abx: Ceftriaxone x1 01/18 Assessment: Afebrile Mild leukocytosis- likely reactive -u/a wbc 5-10, nit neg, leuk +1; sq cells mod (contaminated specimen); NO UTI symptoms Emesis,SP- probably related to THC use -UDS +THC CKD THC abuse tobacco abuse Plan: -Continue to monitor off abx -ok dc from ID stand point -f/u cx -Monitor CBC/CMP, temperatures Thank you for consulting [facility]. Will continue to follow along with you. Discussed Luzma Guzmán M.D. Jan 19, 2020 13:23
[2020-01-19] MEDS: Docusate 100mg cap ORAL SCH ×2 (14:00→17:03)
[2020-01-19 15:48] VITALS: BP 132/74
--- NOTE | 2020-01-19 19:18 | NUR ---
NURSE HAND-OFF: Important Events on Shift:[ON OBSERVATION, MONITOR N/V, IV HYDRATION] Patient Status: [IN PROGRESS] Diet: [REGULAR] Pending Orders: [AM LABS] Pending Results/Labs:[IN AM] Pending MD notification:[] Latest Vital Signs: Temperature 97.8 , Pulse 76 , B/P 132 /74 , Respiratory Rate 18 , O2 SAT 98 , Room Air, O2 Flow Rate . Vital Sign Comment: [] Latest Pierce Fall Score: 35 Fall Risk: Medium Risk Safety Measures: Call light Within Reach, Bed Alarm Zone 1, Side Rails Side Rails x2, Bed position Low and Locked. Fall Precautions: Yellow Socks Yellow Gown Door Sign Patient Fall Education Report given to [FARIHA].
[2020-01-19 19:58] VITALS: BP 104/66
--- NOTE | 2020-01-19 20:17 | NUR ---
NURSE NOTES: Received patient awake, alert, verbal, resting in bed, comfortable.
[2020-01-20 00:11] VITALS: BP 108/62
[2020-01-20 04:00] VITALS: BP 116/64
[2020-01-20] MEDS: D5NS 1,000 ML IV SCH (05:58)
[2020-01-20 07:02] LABS: BASOPHILS % (AUTO) 1.9 % (0.0-2.0); HEMATOCRIT 41.5 % (42.0-52.0); HEMOGLOBIN 14.2 G/DL (14.2-18.0); LYMPHOCYTES % (AUTO) 29.6 % (20.0-45.0); MEAN CORPUSCULAR VOLUME 90 FL (80-99); MONOCYTES % (AUTO) 10.9 % (1.0-10.0); NEUTROPHILS % (AUTO) 55.6 % (45.0-75.0); PLATELET COUNT 294 K/UL (150-450); RED BLOOD COUNT 4.59 M/UL (4.70-6.10); RED CELL DISTRIBUTION WIDTH 11.4 % (11.6-14.8); WHITE BLOOD COUNT 9.1 K/UL (4.8-10.8)
--- NOTE | 2020-01-20 07:09 | NUR ---
HAND-OFF: Report given to OSCAR Rojas.
--- NOTE | 2020-01-20 07:26 | NUR ---
NURSE NOTES: Report received from OSCAR Herrera. Patient awake in bed, alert and oriented x 4, so SOB, on room air, bed in lowest position with breaks engaged and alarm on, denies any pain or discomfort upon assessment, IV line patent and intact, will continue to monitor and proceed with plan of care, call light within reach.
[2020-01-20 08:00] VITALS: BP 122/80
[2020-01-20 08:13] LABS: ALANINE AMINOTRANSFERASE 41 U/L (12-78); ALBUMIN 3.7 G/DL (3.4-5.0); ALKALINE PHOSPHATASE 54 U/L (46-116); ANION GAP 9 mmol/L (5-15); ASPARTATE AMINO TRANSFERASE 33 U/L (15-37); BILIRUBIN,TOTAL 1.4 MG/DL (0.2-1.0); BLOOD UREA NITROGEN 18 mg/dL (7-18); CALCIUM 8.4 MG/DL (8.5-10.1); CARBON DIOXIDE 27 MMOL/L (21-32); CHLORIDE 103 MMOL/L (98-107); CREATININE 1.2 MG/DL (0.55-1.30); PHOSPHORUS 2.4 MG/DL (2.5-4.9); POTASSIUM 3.9 MMOL/L (3.5-5.1); SODIUM 139 MMOL/L (136-145)
[2020-01-20 08:14] LABS: BILIRUBIN,DIRECT 0.2 MG/DL (0.0-0.3)
[2020-01-20] MEDS: Docusate 100mg cap ORAL SCH (08:21)
--- NOTE | 2020-01-20 09:06 | NUR ---
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 Patient stated that " I want to be discharged." RN recommended to wait for the doctor. But patient said he can not wait for the doctor. Awaiting for return call.
--- NOTE | 2020-01-20 09:16 | NUR ---
NURSE NOTES: Received call from Dr. Mendes. RN let him know lab result of BUN 18 and creatinine 1.2,patient denies nausea/vomiting and patient was cleared by ID. Dr. Mendes said he would make round this afternoon to clear the patient.Per Dr. Mendes if patient can not wait he can leave AMA. tobacco blender endorsed to the primary nurse.
--- NOTE | 2020-01-20 10:36 | NUR ---
NURSE NOTES: During morning care, patient stated that he wants to get discharged soon, explained to pt that primary MD will be in for rounds anytime and that primary nurse will let MD know about his request. At 9 am, pt started to become restless and was upset. Charge nurse and primary nurse contacted Dr. Mendes and as per MD, he will be making his rounds this afternoon and will see patient but according to MD, if patient really wants to go beata, he can sign AMA. Explained to pt but he still insisted to go AMA, explained risk and benefits. Pt initially cleared by ID for DC. Patient left against medical advice at 0950 am. AMA form was signed. All belongings taken. IV line and ID band removed. Addendum: 01/20/20 at 1304 by Ana Regalado RN Dr. Mendes made aware that pt left AMA at 0950. Patient is alert and oriented x 4.
== END 2020-01-20 09:50 | disposition left against medical advice (07) ==
LOC: EMR 03:19 → 4E 05:28 → EDBEDREQ 05:54 → 4E 06:28
DX: N17.9 Acute kidney failure, unspecified (principal); N18.9 Chronic kidney disease, unspecified; E86.0 Dehydration; R11.2 Nausea with vomiting, unspecified; N39.0 Urinary tract infection, site not specified; R11.10 Vomiting, unspecified; Z79.899 Other long term (current) drug therapy; F17.200 Nicotine dependence, unspecified, uncomplicated; E87.8 Other disorders of electrolyte and fluid balance, not elsewhere classified; F12.10 Cannabis abuse, uncomplicated; D72.829 Elevated white blood cell count, unspecified
CPT/HCPCS: 36415; 80053; 80307; 81003; 82248; 82962; 83036; 83690; 83735; 83880; 84100; 84443; 84484; 84550; 85025; 85610; 85730; 86140; 87086; 96365; 96366; 96372; 96375; 99284; G0378; J0696; J1630; J2405; J7030; J7040

== ENCOUNTER 2020-05-26 12:28 | Emergency (ER) | payer MEDICAID, OTHER ==
[~2020-05-26] VITALS: Ht 182.9 cm; Wt 90.7 kg
[2020-05-26 13:11] VITALS: BP 141/80
--- NOTE | 2020-05-26 13:17 | NUR ---
ED Nurse Note:pt. came from home with abdominalpain and nausea, blood sent to labs, pt. received iv meds and fluids
[2020-05-26 13:20] LABS: HEMOGLOBIN 17.2 G/DL (14.2-18.0); MEAN CORPUSCULAR VOLUME 91 FL (80-99); PLATELET COUNT 392 K/UL (150-450); RED BLOOD COUNT 5.71 M/UL (4.70-6.10); WHITE BLOOD COUNT 14.6 K/UL (4.8-10.8)
--- NOTE | 2020-05-26 13:37 | Emergency Room Report ---
History of Present Illness General Chief Complaint: Vomiting Source: Patient (Jennifer Cordero) Present Illness HPI 35-year-old male presents to the emergency department complaining of persistent vomiting since yesterday. Patient reports unable to tolerate oral intake. He reports he has been attempting to hydrate with electrolyte water which has been unsuccessful. Patient reports history of decreased renal function. Patient is very adamant that his symptoms are due to food poisoning. Patient reports symptoms began after eating [employer]erre[employer]. Patient denies fevers or chills. He denies dizziness. He does report some weakness. He denies chest pain or palpitations. He denies headache. Patient reports abdominal cramping in the epigastric area radiating to the right upper flank. He denies dysuria, hematuria or urinary frequency. He denies constipation or diarrhea. He denies blood in the vomitus or the stool. He denies black tarry stools. (Jennifer Cordero) Allergies: Coded Allergies: No Known Allergies (Unverified , 03/06/16) COVID-19 Screening Contact w/high risk pt: No Recent Travel to affected area: No Experienced COVID-19 symptoms?: No COVID-19 Testing performed GRANITE FABRICATOR: No COVID-19 Screening: Negative COVID-19 COVID-19 Testing Source: maturity checker (Jennifer Cordero) Patient History Past Medical History: see triage record Past Surgical History: none Pertinent Family History: none Reviewed Nursing Documentation: PMH: Agreed; PSxH: Agreed (Jennifer Cordero) Nursing Documentation-PMH Past Medical History: No History, Except For Hx Cardiac Problems: No Hx Cancer: No Hx Gastrointestinal Problems: No Hx Dialysis: No - KIDNEY ISSUE Hx Neurological Problems: No (Jennifer Cordero) Review of Systems All Other Systems: negative except mentioned in HPI (Jennifer Cordero) Physical Exam Vital Signs Date Time Temp Pulse Resp B/P (MAP) Pulse Ox O2 Delivery O2 Flow Rate FiO2 05/26/20 12:51 98.1 56 18 141/80 (100) 97 Room Air Sp02 EP Interpretation: reviewed, normal General Appearance: no apparent distress, alert, GCS 15, non-toxic Head: normocephalic, atraumatic Eyes: bilateral eye normal inspection, bilateral eye PERRL ENT: hearing grossly normal, normal voice Neck: full range of motion Respiratory: lungs clear, normal breath sounds, speaking full sentences Cardiovascular #1: regular rate, rhythm Gastrointestinal: normal bowel sounds, soft, no peritonitis, non-distended, no guarding, tenderness - epigastric ttp Musculoskeletal: normal range of motion, gait/station normal, non-tender Neurologic: alert, motor strength/tone normal, oriented x3, sensory intact, responsive, speech normal Psychiatric: judgement/insight normal Skin: no rash, normal color (Jennifer Cordero) Medical Decision Making PA Attestation Dr. Blount is my supervising Physician whom patient management has been discussed with. (Jennifer Cordero) Diagnostic Impression: Primary Impression: Vomiting Qualified Codes: R11.2 - Nausea with vomiting, unspecified Additional Impression: Acute hyperkalemia ER Course 35-year-old male presents to the emergency department complaining of persistent vomiting since yesterday. Patient reports unable to tolerate oral intake. He reports he has been attempting to hydrate with electrolyte water which has been unsuccessful. Patient reports history of decreased renal function. Patient is very adamant that his symptoms are due to food poisoning. Patient reports symptoms began after eating Guerrero[employer]. Patient denies fevers or chills. He denies dizziness. He does report some weakness. He denies chest pain or palpitations. He denies headache. Patient reports abdominal cramping in the epigastric area radiating to the right upper flank. He denies dysuria, hematuria or urinary frequency. He denies constipation or diarrhea. He denies blood in the vomitus or the stool. He denies black tarry stools. Pt. 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 Ddx considered but are not limited to GE, colitis, acute appy, SBO, Cyclical Vomiting secondary to THC, * Vital signs: pt. is afebrile, H&PE are most consistent with Gastritis and dehydration, no evidence to suggest acute abdomen on physical exam. ORDERS: -CBC: 14.6 WBC's -CMP: potassium of 5.2 -Lipase: unremarkable -UDS: positive for THC ED INTERVENTIONS: -1000 NS iv hydration, -Zofran 4mg IV -Reglan IV -Kayexalate 30mg PO After above interventions this patient successfully completed oral fluid challenge without nausea or vomiting. DISCHARGE: At this time pt. is stable for d/c to home. Will provide printed patient care instructions, and any necessary prescriptions. Care plan and follow up instructions have been discussed with the patient prior to discharge. Labs Test 05/26/20 12:12 05/26/20 14:55 White Blood Count 14.6 K/UL (4.8-10.8) Red Blood Count 5.71 M/UL (4.70-6.10) Hemoglobin 17.2 G/DL (14.2-18.0) Hematocrit 52.0 % (42.0-52.0) Mean Corpuscular Volume 91 FL (80-99) Mean Corpuscular Hemoglobin 30.1 PG (27.0-31.0) Mean Corpuscular Hemoglobin Concent 33.0 G/DL (32.0-36.0) Red Cell Distribution Width 12.0 % (11.6-14.8) Platelet Count 392 K/UL (150-450) Mean Platelet Volume 7.9 FL (6.5-10.1) Neutrophils (%) (Auto) % (45.0-75.0) Lymphocytes (%) (Auto) % (20.0-45.0) Monocytes (%) (Auto) % (1.0-10.0) Eosinophils (%) (Auto) % (0.0-3.0) Basophils (%) (Auto) % (0.0-2.0) Differential Total Cells Counted 100 Neutrophils % (Manual) 90 % (45-75) Lymphocytes % (Manual) 7 % (20-45) Monocytes % (Manual) 3 % (1-10) Eosinophils % (Manual) 0 % (0-3) Basophils % (Manual) 0 % (0-2) Band Neutrophils 0 % (0-8) Platelet Estimate Adequate Platelet Morphology Normal Red Blood Cell Morphology Normal Sodium Level 139 MMOL/L (136-145) Potassium Level 5.2 MMOL/L (3.5-5.1) Chloride Level 101 MMOL/L (98-107) Carbon Dioxide Level 26 MMOL/L (21-32) Anion Gap 12 mmol/L (5-15) Blood Urea Nitrogen 11 mg/dL (7-18) Creatinine 1.2 MG/DL (0.55-1.30) Estimat Glomerular Filtration Rate > 60 mL/min (>60) Glucose Level 123 MG/DL (74-106) Calcium Level 10.5 MG/DL (8.5-10.1) Total Bilirubin 0.9 MG/DL (0.2-1.0) Aspartate Amino Transf (AST/SGOT) 31 U/L (15-37) Alanine Aminotransferase (ALT/SGPT) 54 U/L (12-78) Alkaline Phosphatase 88 U/L (46-116) Total Protein 9.9 G/DL (6.4-8.2) Albumin 1.5 G/DL (3.4-5.0) Globulin 8.4 g/dL Albumin/Globulin Ratio 0.2 (1.0-2.7) Lipase 63 U/L (73-393) Urine Color Brianna Urine Appearance Slightly cloudy Urine pH 6 (4.5-8.0) Urine Specific [place] 1.010 (1.005-1.035) Urine Protein 2+ (NEGATIVE) Urine Glucose (UA) Negative (NEGATIVE) Urine Ketones 2+ (NEGATIVE) Urine Blood 2+ (NEGATIVE) Urine Nitrite Negative (NEGATIVE) Urine Bilirubin 1+ (NEGATIVE) Urine Ictotest Negative (NEGATIVE) Urine Urobilinogen 1 MG/DL (0.0-1.0) Urine Leukocyte Esterase 1+ (NEGATIVE) Urine RBC 2-4 /HPF (0 - 0) Urine WBC 2-4 /HPF (0 - 0) Urine Squamous Epithelial Cells Few /LPF (NONE/OCC) Urine Bacteria Few /HPF (NONE) Urine Hyaline Casts 15-20 /LPF (NONE) Urine Mucus Many /LPF (NONE/OCC) Urine Opiates Screen Negative (NEGATIVE) Urine Barbiturates Screen Negative (NEGATIVE) Phencyclidine (PCP) Screen Negative (NEGATIVE) Urine Amphetamines Screen Negative (NEGATIVE) Urine Benzodiazepines Screen Negative (NEGATIVE) Urine Cocaine Screen Negative (NEGATIVE) Urine Marijuana (THC) Screen Positive (NEGATIVE) (Jennifer Cordero) ER Course Please see above note. Reglan ordered as continued vomiting. Agree with treatment plan. (Geo Cunningham MD) Last Vital Signs Date Time Temp Pulse Resp B/P (MAP) Pulse Ox O2 Delivery O2 Flow Rate FiO2 05/26/20 13:11 56 18 Room Air 05/26/20 13:11 98.1 141/80 97 (Jennifer Cordero) Last Vital Signs Date Time Temp Pulse Resp B/P (MAP) Pulse Ox O2 Delivery O2 Flow Rate FiO2 05/26/20 17:05 98.1 63 16 138/73 97 Room Air Status: improved (Geo Cunningham MD) Disposition: HOME, SELF-CARE Condition: Stable Scripts Capsaicin (CAPSAICIN) 42.5 Gm Cream..g. 1 APPLIC TP Q8HR, #42.5 GM Prov: Jennifer Cordero 05/26/20 Ondansetron Odt* (ZOFRAN ODT*) 4 Mg Tab.rapdis 4 MG BC EVERY 6 HOURS PRN for Nausea & Vomiting, #10 TAB 0 Refills Prov: Jennifer Cordero 05/26/20 Patient Instructions: Nausea and Vomiting, Adult Additional Instructions: Take medications as directed. Follow up with a Primary Care Provider in 3-5 days, even if your symptoms have resolved. Return sooner to ED if new symptoms occur, or current symptoms become worse. - Please note that this Emergency Department Report was dictated using [employer] Devicesaccounts receivable clerk technology software, occasionally this can lead to erroneous entry secondary to interpretation by the dictation equipment. Jennifer Cordero May 26, 2020 13:37 Geo Cunningham MD May 27, 2020 01:00
[2020-05-26 14:53] LABS: ALANINE AMINOTRANSFERASE 54 U/L (12-78); ALBUMIN 1.5 G/DL (3.4-5.0); ALBUMIN/GLOBULIN RATIO 0.2 (1.0-2.7); ALKALINE PHOSPHATASE 88 U/L (46-116); ANION GAP 12 mmol/L (5-15); ASPARTATE AMINO TRANSFERASE 31 U/L (15-37); BILIRUBIN,TOTAL 0.9 MG/DL (0.2-1.0); CARBON DIOXIDE 26 MMOL/L (21-32); CHLORIDE 101 MMOL/L (98-107); CREATININE 1.2 MG/DL (0.55-1.30); POTASSIUM 5.2 MMOL/L (3.5-5.1); SODIUM 139 MMOL/L (136-145)
[2020-05-26 15:10] LABS: BLOOD UREA NITROGEN 11 mg/dL (7-18); CALCIUM 10.5 MG/DL (8.5-10.1)
[2020-05-26 15:14] LABS: APPEARANCE,URINE SLIGHTLY CLOUDY; BILIRUBIN, URINE 1+ (NEGATIVE); COLOR,URINE AMBER; GLUCOSE, URINE (UA) NEGATIVE (NEGATIVE); KETONES,URINE 2+ (NEGATIVE); LEUKOCYTE ESTERASE ,URINE 1+ (NEGATIVE); NITRITE,URINE NEGATIVE (NEGATIVE); PH,URINE 6 (4.5-8.0); PROTEIN,URINE 2+ (NEGATIVE); UROBILINOGEN,URINE 1 MG/DL (0.0-1.0)
[2020-05-26] MEDS ORDERED: Metoclopramide 10mg/2ml Inj IVP ONE (15:15)
[2020-05-26] MEDS ORDERED: Sodium Polystyrene Sulfonate 15gm Powder ORAL ONE (16:00)
[2020-05-26 16:51] VITALS: BP 138/73
--- NOTE | 2020-05-26 16:53 | NUR ---
ED Nurse Note:pt. tolerating oral intake
[2020-05-26] MEDS ORDERED: ONDANSETRON ODT4 MG BC (16:59)
[2020-05-26] MEDS ORDERED: CAPSAICIN42.5 GM TP (16:59)
[2020-05-26 17:05] VITALS: BP 138/73
--- NOTE | 2020-05-26 17:05 | NUR ---
ER DISCHARGE NOTE: Patient is cleared to be discharged per ERMD, pt is aox4, on room air, with stable vital signs. pt was given dc and prescription instructions, pt was able to verbalize understanding, pt id band and iv site removed without complications. pt is able to ambulate with steady gait. pt took all belongings.
== END 2020-05-26 17:08 | disposition home or self-care (01) ==
LOC: EMR 13:46
DX: R11.2 Nausea with vomiting, unspecified (principal); E87.5 Hyperkalemia
CPT/HCPCS: 36415; 80053; 80307; 81003; 83690; 85007; 85025; 96361; 96374; 96375; 99284; J2405; J2765; J7030; S0028